=== PATIENT | male | born 1980 | race Caucasian/White ===

== ENCOUNTER 2019-08-21 18:33 | Emergency (ER) | payer SELFPAY ==
[~2019-08-21] VITALS: Ht 170.2 cm; Wt 90.0 kg
[2019-08-21 21:36] VITALS: BP 157/88
== END 2019-08-21 21:39 | disposition home or self-care (01) ==
LOC: ER 18:33
DX: S40.011A Contusion of right shoulder, initial encounter (principal); V49.50XA Passenger injured in collision with unspecified motor vehicles in traffic accident, initial encounter; Y93.89 Activity, other specified; Y92.410 Unspecified street and highway as the place of occurrence of the external cause
CPT/HCPCS: 73030; 99283